=== PATIENT | female | born 2000 | race Caucasian/White ===

== ENCOUNTER 2021-11-30 09:49 | Outpatient (CLI) | payer BC | END 2021-11-30 09:50 | disposition home or self-care (01) | LOC: CSHLAB 09:49 | PROVIDERS: ATTEND Family Medicine | DX: Z20.822 Contact with and (suspected) exposure to COVID-19 (principal) | CPT/HCPCS: 87811 ==

== ENCOUNTER 2021-12-02 15:11 | Inpatient (IN) | payer BC ==
[2021-12-02 16:43] LABS: Mean Corpuscular Hemoglobin 27.8 pg (27.0-33.0); Mean Corpuscular Volume 79.5 fl (81.6-98.3); Mean Platelet Volume 10.5 fl (7.4-10.4); Platelet Count 252 10x3/uL (150-450); RBC Distribution Width 14.6 % (11.5-14.5); Red Blood Cell (RBC) Count 3.95 10x6/uL (3.90-5.03); White Blood Cell (WBC) Count 10.7 10x3/uL (3.5-10.5)
[2021-12-02 16:54] VITALS: BMI 39.1
[2021-12-02 17:33] LABS: Syphilis Antibody Nonreactive (Nonreactive); Syphilis Antibody Index 0.03 S/CO (<1.00 Non-Reactive)
[2021-12-02 17:47] LABS: HBSAg Index 0.21 S/CO (0-0.99); Hep B Surf Ag NonReactive S/CO (NonReactive)
[2021-12-02] MEDS ORDERED: Misoprostol 100 MCG TAB ONE ×2 (17:49→22:45)
[2021-12-02] MEDS: Misoprostol 100 MCG TAB VAG SCH ×2 (17:58→22:42)
[2021-12-02] MEDS ORDERED: Butorphanol Tartrate 1 MG/ML VIAL SLOW IVP PRN (19:26)
[2021-12-02] MEDS ORDERED: Carboprost 250 MCG/ML AMP IM PRN (19:26)
[2021-12-02] MEDS ORDERED: Ibuprofen 800 MG TAB PO PRN (19:26)
[2021-12-02] MEDS ORDERED: Misoprostol 200 MCG TAB PR PRN (19:26)
[2021-12-02] MEDS ORDERED: Methylergonovine 0.2 MG/ML VIAL IM PRN (19:26)
[2021-12-02] MEDS ORDERED: Ondansetron PF 4 MG/2 ML Vial IVP PRN (19:26)
[2021-12-02] MEDS ORDERED: Fentanyl 100 MCG/2 ML VIAL SLOW IVP PRN (19:26)
[2021-12-02] MEDS ORDERED: Promethazine HCl 25 MG/ML VIAL IM PRN (19:26)
[2021-12-02] MEDS ORDERED: HYDROcodone/Acetaminophen 5/325 mg Tablet PO PRN (19:26)
[2021-12-02] MEDS ORDERED: hydrALAZINE 20 MG/ML VIAL SLOW IVP PRN (19:26)
[2021-12-02] MEDS ORDERED: Acetaminophen 500 MG TAB PO PRN (19:26)
[2021-12-02] MEDS ORDERED: Lidocaine 1% (PF) 30 ML VIAL SC PRN (19:26)
[2021-12-02] MEDS ORDERED: NS w/ Oxytocin 30 units 500 ML IV SCH (19:30)
[2021-12-03] MEDS ORDERED: Fentanyl 2 mcg/Bup 0.1% Cadd 100 ML ONE (02:36)
[2021-12-03] MEDS ORDERED: Lidocaine 1% (PF) 30 ML VIAL ONE (03:03)
[2021-12-03] MEDS: NS w/ Oxytocin 30 units 500 ML IV SCH ×2 (03:05→04:02)
[2021-12-03] MEDS ORDERED: hydrALAZINE 20 MG/ML VIAL SLOW IVP SCH (03:45)
[2021-12-03] MEDS: Lactated Ringer's 1,000 ML IV SCH ×2 (04:00→04:01)
[2021-12-03] MEDS ORDERED: Bisacodyl 10 MG SUPP PR PRN (04:50)
[2021-12-03] MEDS ORDERED: Benzocaine-Menthol 82.5 ML CAN TOP PRN (04:50)
[2021-12-03] MEDS ORDERED: Milk Of Magnesia 30 ML UDCUP PO PRN (04:50)
[2021-12-03] MEDS ORDERED: Boostrix 0.5 ML (Tdap) VIAL (>/=7 yrs of age) IM ONE (04:50)
[2021-12-03] MEDS ORDERED: hydrALAZINE 20 MG/ML VIAL SLOW IVP PRN (04:50)
[2021-12-03] MEDS ORDERED: HYDROcodone/Acetaminophen 5/325 mg Tablet PO PRN (04:50)
[2021-12-03] MEDS: Ibuprofen 800 MG TAB PO SCH ×3 (06:40→21:16)
[2021-12-03] MEDS: Ferrous Sulfate 325 MG TAB PO SCH ×2 (08:24→16:53)
[2021-12-03] MEDS: Docusate 100 MG CAP PO SCH ×2 (09:25→21:16)
[2021-12-04] MEDS: Ibuprofen 800 MG TAB PO SCH ×3 (05:24→20:49)
[2021-12-04] MEDS: Ferrous Sulfate 325 MG TAB PO SCH ×2 (09:47→20:50)
[2021-12-04] MEDS: Docusate 100 MG CAP PO SCH ×2 (13:42→20:51)
[2021-12-05] MEDS: Ibuprofen 800 MG TAB PO SCH (05:47)
[2021-12-05] MEDS: Ferrous Sulfate 325 MG TAB PO SCH (06:06)
[2021-12-05] MEDS: Docusate 100 MG CAP PO SCH (06:17)
[2021-12-05 08:34] VITALS: BP 130/82; TEMP 98
== END 2021-12-05 12:24 | disposition home or self-care (01) | DRG 807 ==
LOC: CSHLD 15:11 → CSHPP 12-03 05:50
PROVIDERS: ADMIT Family Medicine; ATTEND Family Medicine
PROC: 10E0XZZ Delivery of Products of Conception, External Approach (ICD-10-PCS; principal; 2021-12-03)
PROC: 3E0P7VZ Introduction of Hormone into Female Reproductive, Via Natural or Artificial Opening (ICD-10-PCS; 2021-12-03)
DX: O80 Encounter for full-term uncomplicated delivery (principal); Z37.0 Single live birth; Z3A.39 39 weeks gestation of pregnancy; Z20.822 Contact with and (suspected) exposure to COVID-19
CPT/HCPCS: 36415; 85027; 86780; 86850; 86900; 86901; 87340; 87811; J0360; J0595; J2590

== ENCOUNTER 2023-05-19 06:00 | Inpatient (IN) | payer BC ==
[2023-05-19 06:41] VITALS: BMI 34.3
[2023-05-19] MEDS ORDERED: Misoprostol 200 MCG TAB PR PRN (06:49)
[2023-05-19] MEDS ORDERED: Promethazine HCl 25 MG/ML VIAL IM PRN (06:49)
[2023-05-19] MEDS ORDERED: Ondansetron PF 4 MG/2 ML Vial IVP PRN (06:49)
[2023-05-19] MEDS ORDERED: Acetaminophen 500 MG TAB PO PRN (06:49)
[2023-05-19] MEDS ORDERED: Butorphanol Tartrate 1 MG/ML VIAL SLOW IVP PRN (06:49)
[2023-05-19] MEDS ORDERED: Tranexamic Acid 1,000 MG/10 ML VIAL IVP PRN (06:49)
[2023-05-19] MEDS ORDERED: HYDROcodone/Acetaminophen 5/325 mg Tablet PO PRN ×2 (06:49→23:26)
[2023-05-19] MEDS ORDERED: hydrALAZINE 20 MG/ML VIAL SLOW IVP PRN ×2 (06:49→23:26)
[2023-05-19] MEDS ORDERED: fentaNYL 50 mcg/mL 1 mL Vial SLOW IVP PRN (06:49)
[2023-05-19] MEDS ORDERED: Methylergonovine 0.2 MG/ML VIAL IM PRN (06:49)
[2023-05-19] MEDS ORDERED: Carboprost 250 MCG/ML AMP IM PRN (06:49)
[2023-05-19] MEDS ORDERED: Oxytocin 30 units/NS 500 ML 500 ML IV SCH (07:00)
[2023-05-19] MEDS: Misoprostol 100 MCG TAB VAG SCH (07:08)
[2023-05-19 07:36] LABS: Hematocrit 33.3 % (34.9-44.5); Hemoglobin 11.9 g/dL (12.0-15.5); Mean Corpuscular HGB CONC 35.7 g/dL (32.0-36.0); Mean Corpuscular Hemoglobin 30.1 pg (27.0-33.0); Mean Corpuscular Volume 84.1 fl (81.6-98.3); Mean Platelet Volume 10.3 fl (7.4-10.4); Platelet Count 244 10x3/uL (150-450); RBC Distribution Width 13.2 % (11.5-14.5); Red Blood Cell (RBC) Count 3.96 10x6/uL (3.90-5.03); White Blood Cell (WBC) Count 9.3 10x3/uL (3.5-10.5)
[2023-05-19 08:27] LABS: Syphilis Antibody Nonreactive (Nonreactive); Syphilis Antibody Index 0.03 S/CO (<1.00 Non-Reactive)
[2023-05-19 08:28] LABS: HBSAg Index 0.22 S/CO (0-0.99); Hep B Surf Ag - L&D Non-Reactive S/CO (NonReactive)
[2023-05-19] MEDS: Oxytocin 30 units/NS 500 ML 500 ML IV SCH (20:45)
[2023-05-19] MEDS: Lidocaine 1% (PF) 30 ML VIAL SC PRN (21:25)
[2023-05-19] MEDS: Ibuprofen 800 MG TAB PO PRN (21:32)
[2023-05-19] MEDS ORDERED: Boostrix 0.5 ML (Tdap) VIAL (>/=7 yrs of age) IM ONE (23:26)
[2023-05-19] MEDS ORDERED: Benzocaine-Menthol 82.5 ML CAN TOP PRN (23:26)
[2023-05-19] MEDS ORDERED: Bisacodyl 10 MG SUPP PR PRN (23:26)
[2023-05-19] MEDS ORDERED: Milk Of Magnesia 30 ML UDCUP PO PRN (23:26)
[2023-05-20] MEDS: Docusate 100 MG CAP PO SCH ×2 (00:40→08:29)
[2023-05-20] MEDS: Ibuprofen 800 MG TAB PO SCH (05:33)
[2023-05-20 13:08] VITALS: BP 119/65
[2023-05-20] MEDS: Ferrous Sulfate 325 MG TAB PO SCH (14:33)
[2023-05-20 15:56] VITALS: TEMP 97.8
== END 2023-05-20 21:45 | disposition home or self-care (01) | DRG 807 ==
LOC: CSHLD 06:01 → CSHPP 23:35
PROVIDERS: ADMIT Family Medicine; ATTEND Family Medicine
PROC: 10E0XZZ Delivery of Products of Conception, External Approach (ICD-10-PCS; principal; 2023-05-19)
PROC: 0UQMXZZ Repair Vulva, External Approach (ICD-10-PCS; 2023-05-19)
DX: O77.0 Labor and delivery complicated by meconium in amniotic fluid (principal); Z37.0 Single live birth; Z3A.40 40 weeks gestation of pregnancy; O71.82 Other specified trauma to perineum and vulva
CPT/HCPCS: 36415; 85027; 86780; 86850; 86900; 86901; 87340; J2001; J2590

== ENCOUNTER 2024-11-18 02:42 | Inpatient (IN) | payer BC ==
[2024-11-18 03:13] VITALS: BMI 32.5
[2024-11-18] MEDS ORDERED: Diphenoxylate HCl/Atropine Tablet PO PRN ×2 (03:30)
[2024-11-18] MEDS ORDERED: Ondansetron PF 4 MG/2 ML Vial IVP PRN (03:30)
[2024-11-18] MEDS ORDERED: hydrALAZINE 20 MG/ML VIAL SLOW IVP PRN ×2 (03:30→07:45)
[2024-11-18] MEDS ORDERED: Lidocaine 1% (PF) 30 ML VIAL SC PRN (03:30)
[2024-11-18] MEDS ORDERED: Tranexamic Acid 1,000 MG/10 ML VIAL IVP PRN (03:30)
[2024-11-18] MEDS ORDERED: Carboprost 250 MCG/ML AMP IM PRN (03:30)
[2024-11-18] MEDS ORDERED: Methylergonovine 0.2 MG/ML VIAL IM PRN (03:30)
[2024-11-18] MEDS ORDERED: Oxytocin 30 units/NS 500 ML 500 ML IV SCH (03:30)
[2024-11-18] MEDS ORDERED: Acetaminophen 500 MG TAB PO PRN (03:30)
[2024-11-18 03:45] LABS: Hematocrit 30.2 % (34.9-44.5); Hemoglobin 9.8 g/dL (12.0-15.5); Mean Corpuscular Hemoglobin 23.1 pg (27.0-33.0); Mean Corpuscular Volume 71.1 fL (81.6-98.3); Platelet Count 305 10x3/uL (150-450); Red Blood Cell (RBC) Count 4.25 10x6/uL (3.90-5.03); White Blood Cell (WBC) Count 13.73 10x3/uL (3.5-10.5)
[2024-11-18 04:17] LABS: Syphilis Antibody Index 0.04 S/CO (<1.00 Non-Reactive)
[2024-11-18 04:22] LABS: Hep B Surf Ag - L&D Non-Reactive S/CO (NonReactive)
[2024-11-18] MEDS: Ibuprofen 800 MG TAB PO PRN (05:50)
[2024-11-18] MEDS ORDERED: Milk Of Magnesia 30 ML UDCUP PO PRN (07:45)
[2024-11-18] MEDS ORDERED: Bisacodyl 10 MG SUPP PR PRN (07:45)
[2024-11-18] MEDS ORDERED: Benzocaine-Menthol 82.5 ML CAN TOP PRN (07:45)
[2024-11-18] MEDS ORDERED: HYDROcodone/Acetaminophen 10/325 mg Tablet PO PRN (07:50)
[2024-11-18] MEDS: Ferrous Sulfate 325 MG TAB PO SCH (08:59)
[2024-11-18] MEDS: Boostrix 0.5 ML (Tdap) VIAL (>/=7 yrs of age) IM ONE (09:34)
[2024-11-18] MEDS: Ibuprofen 800 MG TAB PO SCH ×2 (11:35→13:49)
[2024-11-19 05:54] LABS: Hematocrit 25.3 % (34.9-44.5); Hemoglobin 8.1 g/dL (12.0-15.5); Mean Corpuscular Hemoglobin 23.2 pg (27.0-33.0); Mean Corpuscular Volume 72.5 fL (81.6-98.3); Platelet Count 242 10x3/uL (150-450); Red Blood Cell (RBC) Count 3.49 10x6/uL (3.90-5.03); White Blood Cell (WBC) Count 11.62 10x3/uL (3.5-10.5)
[2024-11-19 07:44] VITALS: BP 116/75; TEMP 98.4
== END 2024-11-19 10:05 | disposition home or self-care (01) | DRG 807 ==
LOC: CSHLD/OP 02:42 → CSHLD 03:15 → CSHPP 08:22
PROVIDERS: ADMIT Family Medicine; ATTEND Family Medicine
PROC: 10E0XZZ Delivery of Products of Conception, External Approach (ICD-10-PCS; principal; 2024-11-18)
PROC: 0UQMXZZ Repair Vulva, External Approach (ICD-10-PCS; 2024-11-18)
DX: O48.0 Post-term pregnancy (principal); Z37.0 Single live birth; O70.0 First degree perineal laceration during delivery; Z3A.40 40 weeks gestation of pregnancy
CPT/HCPCS: 36415; 85027; 86780; 86850; 86900; 86901; 87340